=== PATIENT | male | born 1955 | race Caucasian/White ===

== ENCOUNTER 2019-11-18 13:45 | Emergency (ER) | payer MEDICAID ==
[~2019-11-18] VITALS: Ht 177.8 cm; Wt 66.7 kg
--- NOTE | 2019-11-18 14:00 | NUR ---
Patient to ER bed 07 to gown for evaluation. Side rails up.
[2019-11-18 14:01] VITALS: BP_SYST 127
--- NOTE | 2019-11-18 14:05 | NUR ---
Patient presented to ER for Medical clearance. Patient A&Ox BIB [employer] of [employer] to [employer], pt has Hx back pain, present pain 05/20
--- NOTE | 2019-11-18 14:06 | NUR ---
ER Dr. Cole at bedside examining patient.
[2019-11-18 14:38] VITALS: BP_SYST 129
== END 2019-11-18 14:38 ==
LOC: SED 13:45
DX: M54.5 Low back pain (principal); Z88.0 Allergy status to penicillin; Z85.89 Personal history of malignant neoplasm of other organs and systems
CPT/HCPCS: 99283

== ENCOUNTER 2021-08-10 12:31 | Emergency (ER) | payer OTHER ==
[~2021-08-10 12:31] MED LIST: CLE150 PO; HYDR-4272 PO; IBUP-1969 PO
--- NOTE | 2021-08-10 14:34 | NUR ---
CALLED FOR TRIAGE. NO ANSWER. WILL MAKE ATTEMPT AGAIN
--- NOTE | 2021-08-10 15:19 | NUR ---
called for triage no answer.
== END 2021-08-10 15:19 | disposition left against medical advice (07) ==
LOC: SED 12:31
DX: S69.92XA Unspecified injury of left wrist, hand and finger(s), initial encounter (principal); Z53.21 Procedure and treatment not carried out due to patient leaving prior to being seen by health care provider; X58.XXXA Exposure to other specified factors, initial encounter; Y93.89 Activity, other specified; Y92.89 Other specified places as the place of occurrence of the external cause; Y99.8 Other external cause status